=== PATIENT | male | born 1975 | race Caucasian/White ===

== ENCOUNTER → 2019-08-18 14:03 | Outpatient (CLI) | payer MEDICAID, SELFPAY ==
--- NOTE | 2019-08-18 14:20 | XR_ITS ---
PROCEDURE: XR CHEST 2V CLINICAL HISTORY: PRECORDIAL PAIN,SOB,ABN ECG COMPARISON: No exams were available for comparison FINDINGS: The cardiomediastinal silhouette and pulmonary vascularity are within normal limits. The lungs are clear without infiltrates, suspicious nodules, or pleural effusions. There is a calcified granuloma in the right upper lobe No acute bony abnormalities. IMPRESSION: No acute findings. Dictated by: Davidson Riley MD 08/18/2019 15:38 Electronically signed by Davidson Riley MD in [place] 08/18/2019 15:38
[2019-08-18 15:25] LABS: Basophils # 0.1 K/mm3 (0-0.2); Basophils % 1.1 % (0.1-2.0); Eosinophils # 0.3 K/mm3 (0.0-0.4); Eosinophils % 3.1 % (0.1-12.0); Hematocrit 42.8 % (42.0-52.0); Hemoglobin 14.4 g/dL (14.1-18.0); Lymphocytes # 2.2 K/mm3 (0.7-4.5); Mean Corpuscular HGB Conc 33.6 g/dL (31.8-35.4); Mean Corpuscular Hemoglobin 31.9 pg (27.0-31.2); Mean Corpuscular Volume 94.9 fl (80-94); Mean Platelet Volume 6.7 fl (7.4-10.4); Monocytes # 0.5 K/mm3 (0.1-1.0); Monocytes % 5.5 % (1.7-9.3); Neutrophils # 5.5 K/mm3 (1.8-7.8); Neutrophils % 64.3 % (37.0-80.0); Platelet Count 225 K/mm3 (142-424); Red Blood Count 4.51 M/mm3 (4.60-6.20); Red Cell Distribution Width 13.4 % (11.5-17.5); White Blood Count 8.5 K/mm3 (4.8-10.8)
[2019-08-18 18:25] LABS: Chloride 105 mmol/L (98-107); Potassium 4.5 mmoL/L (3.5-5.1); Sodium 139 mmol/L (136-145)
[2019-08-18 18:27] LABS: Blood Urea Nitrogen 19 mg/dl (9-20); Estimated Glomerular Filt Rate 74 ml/min (>60); GFR (African American) 89 ML/MIN (>60)
[2019-08-18 18:28] LABS: Alanine Aminotransferase 79 U/L (12-78); Albumin/Globulin Ratio 1.5 (1.1-1.8); Alkaline Phosphatase 55 U/L (38-126); Anion Gap 9.5 mEq/L (5-15); Aspartate Amino Transferase 46 U/L (17-59); Bilirubin,Total 0.9 mg/dl (0.2-1.3); Calcium 9.2 mg/dl (8.4-10.2); Carbon Dioxide 29 mmol/L (22.0-30.0); Globulin 2.6 g/dL (1.3-3.2); Glucose 107 mg/dl (74-100); Total Protein,Serum 6.6 g/dl (6.3-8.2)
== END ==
PROVIDERS: PCP Internal Medicine; Visit Provider Emergency Medicine
DX: R07.2 Precordial pain (principal); R06.02 Shortness of breath; R94.31 Abnormal electrocardiogram [ECG] [EKG]
CPT/HCPCS: 36415; 71046; 80053; 85025

== ENCOUNTER 2019-08-25 08:05 | Day surgery (SDC) | payer MEDICAID, SELFPAY ==
[2019-08-25] VITALS (13 sets, daily range): BP systolic 111–169; BP diastolic 69–119; PULSE 78–94; RESP 12–16; TEMP 36.8; O2SAT 92–96; BMI 30.4
--- NOTE | 2019-08-25 | IR_ITS ---
APPROVED REPORT Patient Location: Outpatient Contract Specialist: CHITRA Sahu RT (R) PROCEDURES Left heart catheterization Left ventriculogram Selective coronary angiogram INDICATION Abnormal Myoview Informed consent was obtained prior to the procedure. COMPLICATIONS none Estimated Blood Loss: less than 10 mls TECHNIQUE One percent lidocaine used to anesthetize the right anterior aspect of the wrist. The right radial artery was accessed via the Seldinger technique. A 6 Moldovan sheath was placed in the right radial artery. 2.5 mg of verapamil, 800 mcg of nitroglycerin, 1mg Lidocaine and 5000 U Heparin were given through the arterial sheath. The trap cathete and a 4 Moldovan JL 3.5 catheter was also used to perform left heart catheterization, left ventriculogram and selective coronary angiogram. At the end of the procedure the sheath was removed good hemostasis was achieved using Traclet band, patient was transferred to the postop holding area in stable condition. ANGIOGRAPHIC RESULTS The left main artery Normal The left anterior descending artery Normal The circumflex artery Dominant normal The right coronary artery Normal The DE ventriculogram reveals Normal 65% The left ventricular end-diastolic pressure Normal 10 mmHg IMPRESSION Normal coronary arteries Normal ejection fraction Normal left ventricular end-diastolic pressure PLAN 1. Evaluation of noncardiac chest pain Electronically signed by : Ahmet Agarwal, 08/25/2019 11:00:19
[2019-08-25 08:58] LABS: Chloride 108 mmol/L (98-107); Potassium 4.3 mmoL/L (3.5-5.1); Sodium 141 mmol/L (136-145)
[2019-08-25 09:01] LABS: Blood Urea Nitrogen 15 mg/dl (9-20); Creatinine Clearance Estimated 113 mL/min (50-200); Estimated Glomerular Filt Rate 74 ml/min (>60); GFR (African American) 89 ML/MIN (>60)
[2019-08-25 09:02] LABS: Anion Gap 9.3 mEq/L (5-15); Basophils # 0.1 K/mm3 (0-0.2); Basophils % 0.5 % (0.1-2.0); Calcium 9.2 mg/dl (8.4-10.2); Carbon Dioxide 28 mmol/L (22.0-30.0); Eosinophils # 0.3 K/mm3 (0.0-0.4); Eosinophils % 2.6 % (0.1-12.0); Glucose 104 mg/dl (74-100); Hematocrit 46.2 % (42.0-52.0); Lymphocytes # 2.4 K/mm3 (0.7-4.5); Lymphocytes % 23.8 % (10-50); Mean Corpuscular HGB Conc 34.6 g/dL (31.8-35.4); Mean Corpuscular Hemoglobin 32.5 pg (27.0-31.2); Mean Corpuscular Volume 93.7 fl (80-94); Mean Platelet Volume 7.2 fl (7.4-10.4); Monocytes # 0.7 K/mm3 (0.1-1.0); Monocytes % 6.4 % (1.7-9.3); Neutrophils # 6.9 K/mm3 (1.8-7.8); Neutrophils % 66.7 % (37.0-80.0); Platelet Count 294 K/mm3 (142-424); Red Blood Count 4.93 M/mm3 (4.60-6.20); Red Cell Distribution Width 13.9 % (11.5-17.5); White Blood Count 10.3 K/mm3 (4.8-10.8)
== END 2019-08-25 14:10 | disposition home or self-care (01) ==
LOC: CATHLAB 08:08
PROVIDERS: PCP Internal Medicine; Visit Provider Internal Medicine
DX: R94.30 Abnormal result of cardiovascular function study, unspecified (principal); R07.9 Chest pain, unspecified; Z72.0 Tobacco use; Z79.899 Other long term (current) drug therapy; I10 Essential (primary) hypertension
CPT/HCPCS: 80048; 85025; 93458; 99152; C1725; C1769; J1644; Q9967

== ENCOUNTER 2019-09-23 17:02 | Emergency (ER) | payer MEDICAID, SELFPAY ==
[2019-09-23 17:13] VITALS: BP 137/83; PULSE 108; RESP 18; O2SAT 99; BMI 30.4
--- NOTE | 2019-09-23 17:16 | XR_ITS ---
PROCEDURE: XR KNEE LT 3V CLINICAL INDICATION: injury Pain COMPARISON: No exams were available for comparison FINDINGS: No fracture or dislocation. No lytic or blastic change. There is normal mineralization. The joint spaces are well-preserved. No significant degenerative/arthritic changes. No erosive changes evident. Other findings:There is a suprapatellar effusion IMPRESSION: Knee joint effusion otherwise negative Dictated by: Davidson Riley MD 09/23/2019 18:47 Electronically signed by Davidson Riley MD in [place] 09/23/2019 18:47
[2019-09-23 17:23] VITALS: BP 137/83; PULSE 108; RESP 18; O2SAT 99; BMI 30.3
[2019-09-23 18:07] VITALS: BP 137/83; PULSE 108; RESP 18; TEMP 36.7; O2SAT 99
--- NOTE | 2019-09-23 18:15 | HMH.EDUTC ---
[facility] Clinical Impression: Strain of left knee Qualifiers: Encounter type: initial encounter Qualified Code(s): S86.912A - Strain of unspecified muscle(s) and tendon(s) at lower leg level, left leg, initial encounter Left knee pain Qualifiers: Chronicity: acute Qualified Code(s): M25.562 - Pain in left knee Fall Qualifiers: Encounter type: initial encounter Qualified Code(s): W19.XXXA - Unspecified fall, initial encounter Low back pain Qualifiers: Chronicity: acute Back pain laterality: bilateral Sciatica presence: without sciatica Qualified Code(s): M54.5 - Low back pain Disposition: Home, Self-Care Condition on Discharge: Good Instructions: How to Use Crutches, Knee Sprain, DI for Knee Sprain, How to Use a Knee Immobilizer Additional Instructions: Rest the extremity, apply ice for 15 minutes as tolerated three or four times per day, Elevate the extremity as tolerated while you are resting. Follow up with Dr. Em (orthopedics) or your orthopedist of [facility]. I put in a referral to Dr. Phillips, but you need to call her office and schedule an appointment. Follow up with your regular doctor. GO TO THE ER FOR ANY WORSENING SYMPTOMS Referrals: Abdirizak Dye [Primary Care Provider] - Annalisa Em MD [Physician] - Time of Disposition: 18:23 Medical Decision Making - Medical Records Medical records reviewed: No: I reviewed the patient's medical records. - Thony Inquiry Pt receiving controlled substance: No Vital Signs: 09/23/19 17:13 09/23/19 17:23 09/23/19 18:07 Temperature 98.0 F Pulse Rate 108 H Pulse Rate [Right] 108 H 108 H Respiratory Rate 18 18 18 Blood Pressure 137/83 Blood Pressure [Right Arm] 137/83 137/83 Blood Pressure Mean [Right Arm] 101 101 Blood Pressure Source [Right Arm] Automatic Cuff Blood Pressure Position [Right Arm] Sitting 02 Sat by Pulse Oximetry 99 99 Oxygen Delivery Method Room Air Orders (Tests/Meds): ED MEDICATIONS Discontinued Medications Generic Name Dose Route Start Last Admin Trade Name Freq PRN Reason Stop Dose Admin Methylprednisolone Sodium Succinate 125 mg 09/23/19 18:17 09/23/19 18:25 Solu-Medrol 125mg/2ml Vial IM 09/23/19 18:18 125 mg ONCE ONE Administration - Radiology Data #1 Image(s): Knee Image Reviewed: Yes I reviewed the patient's radiology image, Yes I have reviewed radiologist's interpretation Preliminary Findings: No Fracture Seen PROCEDURE: XR KNEE LT 3V CLINICAL INDICATION: injury Pain COMPARISON: No exams were available for comparison FINDINGS: No fracture or dislocation. No lytic or blastic change. There is normal mineralization. The joint spaces are well-preserved. No significant degenerative/arthritic changes. No erosive changes evident. Other findings:There is a suprapatellar effusion IMPRESSION: Knee joint effusion otherwise negative Dictated by: Davidson Riley MD 09/23/2019 18:47 Electronically signed by Davidson Riley MD in [place] 09/23/2019 18:47 [facility] [place] - General Stated complaint: [place] 0714 injured L Knee Time Seen by Provider: 09/23/19 17:15 Mode of Arrival: Ambulatory Source of Information: Patient Limitations: No Limitations Description of Symptoms (Recalled from Triage Doc. by RN): PATIENT C/O LEFT KNEE PAIN AFTER MISSING A STEP AND FALLING ON THURSDAY HE Symptoms (Recalled from RN notes): No Resp Symptoms (Recalled from RN notes): No Skin Symptoms (Recalled from RN notes): No MS Symptoms (Recalled from RN notes): Yes Functional Status (Recalled from RN notes): WNL - History of Present Illness Provider Complaint: He states that he was walking down some stairs at his house when he missed a couple of the steps and fell down and twisted his left knee. This happened 3 days ago. Since then he has not been able to bear weight on the knee without having severe pain. He has also had some swelling of the affected knee. - Related Data Home M
== END 2019-09-23 18:40 | disposition home or self-care (01) ==
PROVIDERS: Emergency Provider Nurse Practitioner Family; PCP Internal Medicine
DX: S86.912A Strain of unspecified muscle(s) and tendon(s) at lower leg level, left leg, initial encounter (principal); W10.9XXA Fall (on) (from) unspecified stairs and steps, initial encounter; Y92.019 Unspecified place in single-family (private) house as the place of occurrence of the external cause; I10 Essential (primary) hypertension; J45.909 Unspecified asthma, uncomplicated; K21.9 Gastro-esophageal reflux disease without esophagitis; F17.210 Nicotine dependence, cigarettes, uncomplicated
CPT/HCPCS: 29505; 73562; 96372; 99203

== ENCOUNTER 2021-12-12 04:28 | Emergency (ER) | payer BC, SELFPAY ==
[2021-12-12 04:48] VITALS: BMI 27.0
[2021-12-12 04:52] VITALS: BP 131/86; PULSE 107; RESP 16; TEMP 36.4; O2SAT 97; BMI 27.0
[2021-12-12 04:52] LABS: Adenovirus,PCR Not Detected (NotDetected); Bordetella Pertussis Not Detected (NotDetected); Chlamydophila Pneumoniae, PCR Not Detected (NotDetected); Coronavirus 229E Not Detected (NotDetected); Coronavirus NL63 Not Detected (NotDetected); Coronavirus OC43 Not Detected (NotDetected); Coronovirus HKU1,PCR Not Detected (NotDetected); Human Metapneumovirus Not Detected (NotDetected); Influenza A, PCR Not Detected (NotDetected); Influenza AH1, 2009 Not Detected (NotDetected); Influenza AH1, PCR Not Detected (NotDetected); Influenza AH3,PCR Not Detected (NotDetected); Influenza B, PCR Not Detected (NotDetected); Mycoplasma Pneumoniae, PCR Not Detected (NotDetected); Parainfluenza 1, PCR Not Detected (NotDetected); Parainfluenza 2, PCR Not Detected (NotDetected); Parainfluenza 3, PCR Not Detected (NotDetected); Parainfluenza 4, PCR Not Detected (NotDetected); Respiratory Syncytial Virus Not Detected (NotDetected); Rhinovirus/Enterovirus Not Detected (NotDetected)
--- NOTE | 2021-12-12 05:05 | HMH.EDURI ---
Discharge Plan Disposition Patient Disposition: Home, Self-Care Chief Complaint: Upper Respiratory Infection Prescriptions Prescriptions: No Action metoprolol succinate 25 MG tablet extended release 24 hr 25 mg PO DAILY Referrals Follow up/Referrals: Abdirizak Dye MD [Primary Care Provider] - See instructions Clinical Impressions Clinical Impression: Upper respiratory infection, Bronchitis Instructions Patient Instructions: DI for Acute Bronchitis, DI for COVID-19 (Suspected or Confirmed ) Discharge ED Provider: Janes Lowry URI/Sore Throat HPI General Chief Complaint: Upper Respiratory Infection Stated Complaint: HOLGUIN,poor appitite,fever,Covid test Time Seen by Provider: 12/12/21 05:05 Mode of Arrival: Ambulatory Source of Information: Patient, Spouse and Medical Record Limitations: No Limitations Description of Symptoms (Recalled from ER Triage Doc. by RN): pt c/o a cough and general not well feeling reports to have had a fever thursday with headache. History of Present Illness HPI Narrative: cough and holguin and not feeling well over the last few days - no def exposure to covid-19 Complaint: cough Onset (ago): day(s) Duration: intermittent Severity: moderate Able to tolerate fluids by mouth: Yes Related Data Home Medications Medication Instructions Recorded Confirmed metoprolol succinate 25 mg 25 mg PO DAILY blood pressure 08/25/19 09/23/19 tablet,extended release 24 hr Allergies Allergy/AdvReac Type Severity Reaction Status Date / Time cefaclor [From [facility]] Allergy Verified 08/29/19 14:21 ibuprofen Allergy Verified 08/29/19 14:21 PFSH PFSH Social History Smoking Status: Heavy tobacco smoker tobacco type: cigarettes packs per day: 2 alcohol intake: never substance use type: denies use current occupational status: other Travel in the last 8 weeks: None household members: spouse housing: house ROS Obtained: Yes All systems reviewed & no additional complaints except as documented Respiratory Respiratory: Reports as per HPI and Reports cough Physical Exam General General appearance: alert Head Head exam: normocephalic Eye Eye exam: Present PERRL and EOMI ENT ENT exam: Present mucous membranes moist Expanded ENT Exam Throat exam: Present tonsillar erythema; Absent R peritonsillar mass or muffled voice Neck Neck exam: Present trachea midline Respiratory Respiratory exam: Present wheezes Cardiovascular Cardiovascular exam: Present regular rate Abdominal Exam Abdominal exam: Present soft Extremities Exam Extremities exam: Absent calf tenderness Neurological Exam Neurological exam: Present alert and CN II-XII intact Psychiatric Psychiatric exam: Present normal affect Skin Skin exam: Absent rash Medical Decision Making Medical Records Medical records reviewed: Yes I reviewed the patient's medical records. Thony Inquiry Pt receiving controlled substance: No Vital Signs: 12/12/21 04:52 Temperature 97.6 F Temperature Source Oral Pulse Rate [Left] 107 H Respiratory Rate 16 Blood Pressure [Right Arm] 131/86 Blood Pressure Mean [Right Arm] 101 02 Sat by Pulse Oximetry 97 Oxygen Delivery Method Room Air Lab Data Lab results reviewed: Yes I reviewed the patient's lab results. Orders (Tests/Meds): ED MEDICATIONS Discontinued Medications Generic Name Dose Route Start Last Admin Trade Name Freq PRN Reason Stop Dose Admin Albuterol/Ipratropium 2 puff 12/12/21 05:05 Combivent 20mcg/100mcg Respimat Inhaler IH 12/12/21 05:06 ONCE ONE Levofloxacin 500 mg 12/12/21 05:05 Levofloxacin 500mg Tab PO 12/12/21 05:06 ONCE ONE Prednisone 40 mg 12/12/21 05:05 Prednisone 20mg Tab PO 12/12/21 05:06 ONCE ONE ORDERS Category Date Time Status Full Resp Panel w/COVID ([facility]) Routine Lab 12/12/21 04:49 Received Medical Decision Narrative: will do resp panel with covid-19 - pt will call pcp for follow
[2021-12-12 05:51] VITALS: BP 128/80; PULSE 100; RESP 16; TEMP 36.6; O2SAT 98
[2021-12-12 06:08] LABS: Coronavirus 19, PCR Detected (NotDetected)
== END 2021-12-12 05:53 | disposition home or self-care (01) ==
PROVIDERS: Emergency Provider Emergency Medicine; PCP Internal Medicine
DX: U07.1 COVID-19 (principal); J40 Bronchitis, not specified as acute or chronic
CPT/HCPCS: 87581; 87632; 87798; 99283; C9803; U0003; U0005

== ENCOUNTER 2022-02-18 20:04 | Emergency (ER) | payer BC, SELFPAY ==
[2022-02-18 20:07] VITALS: BP 127/76; PULSE 112; RESP 16; TEMP 38.1; O2SAT 95; BMI 25.8
--- NOTE | 2022-02-18 20:42 | XR_ITS ---
PROCEDURE INFORMATION: Exam: XR Chest Exam date and time: 02/18/2022 9:08 PM Age: 46 years old Clinical indication: Patient HX: Cough, congestion, smoker TECHNIQUE: Imaging protocol: Radiologic exam of the chest. Views: 2 views. COMPARISON: DX XR CHEST 2V 08/18/2019 2:25 PM FINDINGS: Lungs: Subtle interstitial haziness could reflect interstitial pneumonia. No consolidation. Pleural spaces: Unremarkable. No pleural effusion. No pneumothorax. Heart/Mediastinum: Unremarkable. No cardiomegaly. Bones/joints: Unremarkable. IMPRESSION: Subtle interstitial haziness could reflect interstitial pneumonia.
[2022-02-18 20:48] LABS: Coronavirus 19, PCR Not Detected (NotDetected); Influenza B, PCR Not Detected (NotDetected)
[2022-02-18 21:49] LABS: Influenza A, PCR Detected (NotDetected)
[2022-02-18 21:58] VITALS: BP 120/72; PULSE 98; RESP 18; TEMP 37.2; O2SAT 98
--- NOTE | 2022-02-18 21:59 | HMH.EDURI ---
Discharge Plan Disposition Patient Disposition: Home, Self-Care Prescriptions Prescriptions: New benzonatate 100 mg Capsule 100 mg PO Q8H Qty: 20 0RF prednisone [prednisone] 20 mg tablet 20 mg PO BID Qty: 10 0RF oseltamivir [Tamiflu] 75 mg capsule 75 mg PO BID 5 Days Qty: 10 0RF No Action metoprolol succinate 25 MG tablet extended release 24 hr 25 mg PO DAILY Referrals Follow up/Referrals: Abdirizak Dye MD [Primary Care Provider] - See instructions Clinical Impressions Clinical Impression: Influenza Stand Alone Forms Stand Alone Forms: Work/School Release Instructions Patient Instructions: DI for Influenza -- Adult Discharge ED Provider: Janes Lowry URI/Sore Throat HPI General Chief Complaint: Upper Respiratory Infection Stated Complaint: cough, body aches, SOA, holguin, congestion Time Seen by Provider: 02/18/22 21:59 Mode of Arrival: Ambulatory Source of Information: Patient and Medical Record Limitations: No Limitations Description of Symptoms (Recalled from ER Triage Doc. by RN): pt c/o fever, cough, Holguin, congestion since thursday History of Present Illness HPI Narrative: uri sx and cough and congestion with holguin Complaint: cough and nasal congestion Onset (ago): day(s) Duration: intermittent Severity: moderate Able to tolerate fluids by mouth: Yes Treatments prior to arrival: acetaminophen Related Data Home Medications Medication Instructions Recorded Confirmed metoprolol succinate 25 mg 25 mg PO DAILY blood pressure 08/25/19 09/23/19 tablet,extended release 24 hr Previous Rx's Medication Instructions Recorded benzonatate 100 mg capsule 100 mg PO Q8H #20 caps 02/18/22 oseltamivir 75 mg capsule (Tamiflu) 75 mg PO BID 5 days #10 caps 02/18/22 prednisone 20 mg tablet 20 mg PO BID #10 tabs 02/18/22 Allergies Allergy/AdvReac Type Severity Reaction Status Date / Time cefaclor [From [facility]] Allergy Verified 08/29/19 14:21 ibuprofen Allergy Verified 08/29/19 14:21 [facility] Disclaimer: The information contained in this section may have been updated after the patient was seen, as this information can be updated by other users. Social History Smoking Status: Never smoker alcohol intake: never substance use type: denies use current occupational status: other Travel in the last 8 weeks: None household members: spouse housing: house ROS Obtained: Yes All systems reviewed & no additional complaints except as documented Physical Exam General General appearance: alert Head Head exam: normocephalic Eye Eye exam: Present PERRL and EOMI ENT ENT exam: Present normal oropharynx and mucous membranes moist Neck Neck exam: Present trachea midline Respiratory Respiratory exam: Present normal lung sounds bilaterally; Absent respiratory distress Cardiovascular Cardiovascular exam: Present regular rate; Absent systolic murmur Abdominal Exam Abdominal exam: Present soft Extremities Exam Extremities exam: Absent tenderness Neurological Exam Neurological exam: Present alert, oriented X3 and CN II-XII intact; Absent motor sensory deficit Psychiatric Psychiatric exam: Present normal affect Skin Skin exam: Absent rash Medical Decision Making Medical Records Medical records reviewed: Yes I reviewed the patient's medical records. Thony Inquiry Pt receiving controlled substance: No Vital Signs: 02/18/22 20:07 Temperature 100.6 F H Temperature Source Oral Pulse Rate [Right] 112 H Respiratory Rate 16 Blood Pressure [Right Arm] 127/76 Blood Pressure Mean [Right Arm] 93 02 Sat by Pulse Oximetry 95 Lab Data Lab results reviewed: Yes I reviewed the patient's lab results. Lab Results 02/18/22 20:39: SARS-CoV-2 (PCR) Not detected, Influenza A Untype (PCR) Detected A, Influenza Type B (PCR) Not detected Orders (Tests/Meds): ED MEDICATIONS Discontinued Medications Generic Name Dose Route Start Last Admin Trade Name
== END 2022-02-18 22:13 | disposition home or self-care (01) ==
PROVIDERS: Emergency Provider Emergency Medicine; PCP Internal Medicine
DX: J10.1 Influenza due to other identified influenza virus with other respiratory manifestations (principal)
CPT/HCPCS: 71046; 99283; C9803; U0003; U0005

== ENCOUNTER → 2022-02-25 10:16 | Outpatient (CLI) | payer BC, SELFPAY ==
--- NOTE | 2022-02-25 10:29 | XR_ITS ---
FINAL REPORT CLINICAL HISTORY: COUGH COMPARISON: 02/18/2022 FINDINGS: TWO-VIEW CHEST The heart size is normal. The mediastinum is normal. There are worsening pulmonary opacities, may represent pneumonia or edema. There is no pneumothorax. IMPRESSION: Worsening pulmonary opacities. Reviewed, Interpreted and Dictated by Rashaad Matt III, MD Transcribed by Kelle Ayala Authenticated and . [facility]
[2022-02-25 11:19] LABS: Chloride 100 mmol/L (98-107); Potassium 3.6 mmoL/L (3.5-5.1); Sodium 136 mmol/L (136-145)
[2022-02-25 11:22] LABS: Anion Gap 11.6 mEq/L (5-15); Blood Urea Nitrogen 18 mg/dl (9-20); Calcium 9.1 mg/dl (8.4-10.2); Carbon Dioxide 28 mmol/L (22.0-30.0); Estimated Glomerular Filt Rate 92 ml/min (>60); GFR (African American) 111 ML/MIN (>60); Glucose 155 mg/dl (74-100)
[2022-02-25 11:25] LABS: Basophils # 0.1 K/mm3 (0-0.2); Basophils % 0.5 % (0.1-2.0); Eosinophils # 0.1 K/mm3 (0.0-0.4); Eosinophils % 0.3 % (0.1-12.0); Hematocrit 43.4 % (42.0-52.0); Hemoglobin 14.6 g/dL (14.1-18.0); Lymphocytes # 1.2 K/mm3 (0.7-4.5); Lymphocytes % 7.7 % (10-50); Mean Corpuscular HGB Conc 33.7 g/dL (31.8-35.4); Mean Corpuscular Hemoglobin 30.6 pg (27.0-31.2); Mean Corpuscular Volume 90.8 fl (80-94); Mean Platelet Volume 8.1 fl (7.4-10.4); Monocytes # 0.7 K/mm3 (0.1-1.0); Monocytes % 4.8 % (1.7-9.3); Neutrophils % 86.7 % (37.0-80.0); Platelet Count 473 K/mm3 (142-424); Red Blood Count 4.77 M/mm3 (4.60-6.20); Red Cell Distribution Width 12.9 % (11.5-17.5)
[2022-02-25 11:26] LABS: MANUAL DIFFERENTIAL MANUAL DIFFERENTIAL (MANUAL DIFF)
[2022-02-25 11:43] LABS: Lymphocytes % 15 % (10-50); Monocytes % 8 % (2-9); Neutrophils % 77 % (42-76); Total Cells Counted 100
[2022-02-25 11:44] LABS: Platelet Estimate Slight Increase; RBC Morphology Normal
== END ==
LOC: LAB 10:16
PROVIDERS: PCP Internal Medicine; Visit Provider Internal Medicine
DX: J10.1 Influenza due to other identified influenza virus with other respiratory manifestations (principal); J45.901 Unspecified asthma with (acute) exacerbation; E86.0 Dehydration
CPT/HCPCS: 36415; 71046; 80048; 85007; 85025; 87040

== ENCOUNTER 2022-02-25 12:13 | Inpatient (IN) | payer BC, SELFPAY ==
--- NOTE | 2022-02-25 12:24 | PC.NURSE ---
Pt arrived to the floor at this time
[2022-02-25 12:44] VITALS: BP 129/92; PULSE 132; RESP 24; TEMP 36.5; O2SAT 86; BMI 26.2
[2022-02-25 13:10] LABS: Coronavirus 19, PCR Not Detected (NotDetected); Influenza B, PCR Not Detected (NotDetected)
[2022-02-25 13:43] LABS: Influenza A, PCR Detected (NotDetected)
--- NOTE | 2022-02-25 14:02 | ECG_ITS ---
APPROVED REPORT Exam: Resting ECG HR:116 bpm ECG Measurements Heart Rate 116 AXES DE 120 P 37 QRSd 86 QRS 87 QT 298 T 28 QTc 367 Conclusion SINUS TACHYCARDIA ABNORMAL RHYTHM ECG UNCONFIRMED REPORT Electronically signed by : Magdaleno Barnes MD 02/25/2022 22:14:06
--- NOTE | 2022-02-25 14:09 | EXP.HP ---
History of Present Illness *Admission Date: 02/25/22 *Reason for visit:: Pneumonia, hypoxia *History of present illness: Patient is a 46-year-old male with past medical history of hypertension and asthma who is a direct admission from Dr. Dye [facility] for pneumonia with hypoxia. Patient reports a cough and shortness of breath for the past week. On 02/18 he tested positive for influenza A and started Tamiflu. He had nausea and vomiting and therefore did not continue Tamiflu. Shortness of breath and cough continue to worsen so he went to his PCPs office this morning where a pulse ox showed 86% on room air and a heart rate of 120. Patient had crackles on exam and a chest x-ray showed interstitial pneumonia with a leukocytosis of 15. Dr. Dye called and consulted me for transfer. [facility] Disclaimer: The information contained in this section may have been updated after the patient was seen, as this information can be updated by other users. Medical History (Updated 02/25/22 @ 14:21 by Xander Briones MD) Asthma Family History (Updated 02/25/22 @ 13:18 by Rach Cho RN) Other Family history of cancer Family history of myocardial infarction Social History (Updated 02/25/22 @ 13:20 by Rach Cho RN) Smoking Status: Never smoker alcohol intake: never substance use type: denies use current occupational status: other Travel in the last 8 weeks: None household members: spouse housing: house Review of Systems Constitutional Constitutional: Denies anorexia, Denies body ache(s), Reports chills, Reports fatigue, Reports fever(s), Denies headache(s), Denies poor appetite, Reports lethargy and Denies weakness Eyes Eyes: Denies blurry vision, Denies change in vision and Denies loss of vision ENT Ears, Nose, Mouth, and Throat: Denies abnormal hearing, Denies bleeding gums, Denies disequilibrium, Denies dry mouth, Denies facial pain, Denies headache(s), Denies hoarseness and Reports sore throat *Cardiovascular Cardiovascular: Denies chest pain at rest, Denies chest pain with activity, Reports dyspnea, Reports dyspnea on exertion, Denies leg ulcers and Reports palpitations *Respiratory Respiratory: Reports cough, Reports dyspnea, Reports dyspnea on exertion and Reports wheezing *Gastrointestinal Gastrointestinal: Denies abdominal pain and Denies constipation *Genitourinary Genitourinary: Denies difficulty urinating *Musculoskeletal Musculoskeletal: Denies abnormal gait, Denies back pain and Denies numbness *Neurologic Neurologic: Denies abnormal gait, Denies abnormal hearing, Denies abnormal movements, Denies abnormal speech, Denies confusion, Denies convulsions, Denies disequilibrium, Denies headache(s), Denies loss of vision, Denies memory loss, Denies numbness and Denies weakness Psychiatric Psychiatric: Denies anxiety, Denies confusion, Denies depression, Denies memory loss and Denies mood swings Endocrine Endocrine: Reports fatigue and Reports palpitations Allergic/Immunologic Allergic/Immunologic: Reports wheezing Meds Home Medications and Allergies Home Medications Medication Instructions Recorded Confirmed Type metoprolol succinate 25 mg 25 mg PO DAILY blood pressure 08/25/19 09/23/19 History tablet,extended release 24 hr benzonatate 100 mg capsule 100 mg PO Q8H #20 caps 02/18/22 Rx oseltamivir 75 mg capsule (Tamiflu) 75 mg PO BID 5 days #10 caps 02/18/22 Rx prednisone 20 mg tablet 20 mg PO BID #10 tabs 02/18/22 Rx New Prescriptions to Start Prescriptions: Allergies Allergy/AdvReac Type Severity Reaction Status Date / Time [facility] Allergy Verified 08/29/19 14:21 ibuprofen Allergy Verified 08/29/19 14:21 Exam Data for Last 24 hours Vital signs and Labs for Last 24 Hours: Temp Pulse Resp BP Pulse Ox 97.7 F 132 H 24 129/92 H 86 L 02/25/22 12:44 02/25/22 12:44 02/25/22 12:44 02/25/22 12:44 02/25/22 12:44 Laboratory Results - last 24 hr
[2022-02-25 14:21] LABS: Chloride 101 mmol/L (98-107); Sodium 135 mmol/L (136-145)
[2022-02-25 14:22] LABS: Potassium 3.4 mmoL/L (3.5-5.1)
[2022-02-25 14:24] LABS: Alanine Aminotransferase 74 U/L (12-78); Albumin Level 3.6 g/dl (3.5-5.0); Albumin/Globulin Ratio 1.1 (1.1-1.8); Alkaline Phosphatase 142 U/L (38-126); Anion Gap 10.4 mEq/L (5-15); Aspartate Amino Transferase 48 U/L (17-59); Bilirubin,Total 1.4 mg/dl (0.2-1.3); Blood Urea Nitrogen 17 mg/dl (9-20); Calcium 9.1 mg/dl (8.4-10.2); Carbon Dioxide 27 mmol/L (22.0-30.0); Creatinine Clearance Estimated 116 mL/min (50-200); Estimated Glomerular Filt Rate 92 ml/min (>60); GFR (African American) 111 ML/MIN (>60); Globulin 3.4 g/dL (1.3-3.2); Glucose 126 mg/dl (74-100)
[2022-02-25 14:25] LABS: Basophils # 0.1 K/mm3 (0-0.2); Basophils % 0.5 % (0.1-2.0); Eosinophils % 0.1 % (0.1-12.0); Hematocrit 42.5 % (42.0-52.0); Hemoglobin 14.3 g/dL (14.1-18.0); Lymphocytes # 1.3 K/mm3 (0.7-4.5); Lymphocytes % 8.2 % (10-50); Magnesium 2.4 mg/dl (1.6-2.3); Mean Corpuscular HGB Conc 33.6 g/dL (31.8-35.4); Mean Corpuscular Volume 92.4 fl (80-94); Mean Platelet Volume 7.8 fl (7.4-10.4); Monocytes # 0.9 K/mm3 (0.1-1.0); Monocytes % 6.1 % (1.7-9.3); Neutrophils % 85.2 % (37.0-80.0); Platelet Count 453 K/mm3 (142-424); Red Cell Distribution Width 13.3 % (11.5-17.5); White Blood Count 15.3 K/mm3 (4.8-10.8)
[2022-02-25 14:43] LABS: Lactic Acid 1.3 mmol/L (0.7-2.1)
--- NOTE | 2022-02-25 15:16 | HMH.PHAINT1 ---
Pharmacy Intervention Comments: home medication list verified with patient
[2022-02-25 16:00] VITALS: BP 129/79; PULSE 116; RESP 20; TEMP 37.7; O2SAT 91
[2022-02-25 17:16] LABS: Microscopic, Urine URINE MICROSCOPIC (MICROSCOPIC)
[2022-02-25 17:19] LABS: Appearance,Urine CLEAR (Clear); Blood, Urine TRACE-I (Negative); Color,Urine ORANGE (Yellow); Glucose,Urine (UA) TRACE (Negative); Ketones,Urine TRACE (Negative); Leukocyte Esterase,Urine Negative (Negative); Nitrate,Urine Negative (Negative); PH,Urine 6.5 (5.0-8.5); Protein,Urine 2+ (Negative); Specific Gravity, Urine 1.025 (1.005-1.030); Urobilinogen,Urine >=8.0 EU/dl (0.2)
[2022-02-25 17:28] LABS: Amphetamine/Metha Screen,Urine Negative ng/ml (<1000); Barbiturates Screen,Urine Negative ng/ml (<200)
[2022-02-25 17:29] LABS: Benzodiazepines Screen,Urine Negative ng/ml (<200)
[2022-02-25 17:30] LABS: Cannabinoid Screen,Urine Negative ng/ml (<50); Cocaine Screen,Urine Negative ng/ml (<300)
[2022-02-25 17:31] LABS: Methadone Screen,Urine Negative ng/ml (<300)
[2022-02-25 17:32] LABS: Opiate Screen,Urine Positive ng/ml (<300); Phencyclidine Screen,Urine Negative ng/ml (<25)
[2022-02-25 17:41] LABS: Bacteria,Urine Trace /lpf; Bilirubin,Urine 1+ (Negative); RBC,Urine Occasional #/hpf (0-3); WBC,Urine Occasional #/hpf (0-3)
[2022-02-25 19:40] VITALS: BP 120/70; PULSE 94; RESP 18; TEMP 36.5; O2SAT 92
[2022-02-25 20:00] VITALS: PULSE 100; PULSE 94
[2022-02-25 23:52] VITALS: BP 127/80; PULSE 95; RESP 18; TEMP 36.8; O2SAT 95
[2022-02-26] VITALS (10 sets, daily range): BP systolic 119–137; BP diastolic 68–86; PULSE 84–99; RESP 16–20; TEMP 36.8–37.3; O2SAT 93–99; BMI 26.4
--- NOTE | 2022-02-26 05:13 | PC.NURSE ---
pt has rested intermittently this shift, no complaints of SOA or pain, remains on 1L NC, crackes noted to lungs on auscultation, o2 SATS 92-95%
[2022-02-26 06:59] LABS: Basophils # 0.1 K/mm3 (0-0.2); Basophils % 0.6 % (0.1-2.0); Eosinophils % 0.3 % (0.1-12.0); Hematocrit 40.7 % (42.0-52.0); Hemoglobin 13.3 g/dL (14.1-18.0); Lymphocytes # 1.7 K/mm3 (0.7-4.5); Mean Corpuscular HGB Conc 32.7 g/dL (31.8-35.4); Mean Corpuscular Hemoglobin 30.7 pg (27.0-31.2); Mean Platelet Volume 7.2 fl (7.4-10.4); Monocytes # 0.9 K/mm3 (0.1-1.0); Monocytes % 5.2 % (1.7-9.3); Neutrophils # 13.8 K/mm3 (1.8-7.8); Platelet Count 437 K/mm3 (142-424); Red Blood Count 4.33 M/mm3 (4.60-6.20); Red Cell Distribution Width 13.4 % (11.5-17.5); White Blood Count 16.4 K/mm3 (4.8-10.8)
[2022-02-26 07:02] LABS: MANUAL DIFFERENTIAL MANUAL DIFFERENTIAL (MANUAL DIFF)
[2022-02-26 07:03] LABS: Chloride 104 mmol/L (98-107)
[2022-02-26 07:04] LABS: Potassium 3.5 mmoL/L (3.5-5.1); Sodium 135 mmol/L (136-145)
[2022-02-26 07:06] LABS: Alanine Aminotransferase 106 U/L (12-78); Alkaline Phosphatase 137 U/L (38-126); Aspartate Amino Transferase 80 U/L (17-59); Bilirubin,Total 0.8 mg/dl (0.2-1.3); Blood Urea Nitrogen 12 mg/dl (9-20); Creatinine Clearance Estimated 150 mL/min (50-200); Estimated Glomerular Filt Rate 123 ml/min (>60); GFR (African American) 148 ML/MIN (>60)
[2022-02-26 07:07] LABS: Albumin Level 3.1 g/dl (3.5-5.0); Anion Gap 8.5 mEq/L (5-15); Calcium 8.3 mg/dl (8.4-10.2); Carbon Dioxide 26 mmol/L (22.0-30.0); Globulin 3.1 g/dL (1.3-3.2); Glucose 110 mg/dl (74-100); Total Protein,Serum 6.2 g/dl (6.3-8.2)
[2022-02-26 07:40] LABS: Lymphocytes % 14 % (10-50); Monocytes % 3 % (2-9); Neutrophils % 83 % (42-76); Platelet Estimate Normal; RBC Morphology Normal; Total Cells Counted 100
--- NOTE | 2022-02-26 10:33 | PC.NURSE ---
courtesy tech round: pt sleeping on left side with call light within reach.
--- NOTE | 2022-02-26 11:52 | PC.NURSE ---
INSTRUCTED PATIENT WE NEEDED A SPUTUM SAMPLE. EXPLAINED REASONING FOR SPUTUM SAMPLE AND PATIENT VERBALIZED UNDERSTANDING. SAMPLE CUP PROVIDED AT BEDSIDE.
--- NOTE | 2022-02-26 15:54 | EXP.PN ---
Subjective *Date: 02/26/22 *Time: 15:54 Interval history: Patient still feels rather sick today, he is coughing quite a bit and feels short of breath. Exam Data for Last 24 hours Vital signs and Labs for Last 24 Hours: Temp Pulse Resp BP Pulse Ox 98.4 F 94 H 18 123/82 93 L 02/26/22 12:00 02/26/22 12:00 02/26/22 12:00 02/26/22 12:00 02/26/22 13:43 Laboratory Results - last 24 hr 02/25/22 16:42: Urine Color Gillespie, Urine Appearance Clear, Urine pH 6.5, Ur Specific Logan 1.025, Urine Protein 2+, Urine Glucose (UA) Trace, Urine Ketones Trace, Urine Blood Trace-i, Urine Nitrate Negative, Urine Bilirubin 1+ A, Urine Urobilinogen >=8.0, Ur Leukocyte Esterase Negative, Urine RBC Occasional, Urine WBC Occasional, Ur Squamous Epith Cells None, Urine Bacteria Trace 02/25/22 16:42: Urine Opiates Screen Positive H, Urine Methadone Screen Negative, Ur Barbituates Screen Negative, Ur Phencyclidine Scrn Negative, Ur Amphetamines Screen Negative, U Benzodiazepines Scrn Negative, Urine Cocaine Screen Negative, U Marijuana (THC) Screen Negative 02/26/22 06:32: WBC 16.4 H, RBC 4.33 L, Hgb 13.3 L, Hct 40.7 L, MCV 94.0, MCH 30.7, MCHC 32.7, RDW 13.4, Plt Count 437 H, MPV 7.2 L, Neut % (Auto) 84.0 H, Lymph % (Auto) 10.0, Pickett % (Auto) 5.2, Eos % (Auto) 0.3, Baso % (Auto) 0.6, Neut # (Auto) 13.8 H, Lymph # (Auto) 1.7, Pickett # (Auto) 0.9, Eos # (Auto) 0.0, Baso # (Auto) 0.1, Total Counted 100, Neutrophils % (Manual) 83 H, Lymphocytes % (Manual) 14, Monocytes % (Manual) 3, Platelet Estimate Normal, RBC Morphology Normal 02/26/22 06:32: Sodium 135 L, Potassium 3.5, Chloride 104, Carbon Dioxide 26, Anion Gap 8.5, BUN 12 D, Creatinine 0.70 D, Estimated Creat Clear 150, Estimated GFR 123, Est GFR ( Amer) 148 D, Glucose 110 H, Calcium 8.3 L, Total Bilirubin 0.8, AST 80 H D, ALT 106 H D, Alkaline Phosphatase 137 H, Total Protein 6.2 L, Albumin 3.1 L D, Globulin 3.1, Albumin/Globulin Ratio 1.0 L I & O for Last 24 hours: Intake & Output 02/23/22 02/24/22 02/25/22 02/26/22 23:59 23:59 23:59 23:59 Intake Total 993 / 993 2153 / 2153 Output Total 100 / 860 1000 / 1000 Balance 893 / 133 1153 / 1153 Weight 78.16 kg 78.982 kg Constitutional Constitutional: mild distress, average body habitus and cooperative *Routine HEENT Exam Head: Present normocephalic and atraumatic Eye: Present EOMI and PERRL ENT: Present mucous membranes moist and oropharynx clear *Routine Neck Exam Neck: Present supple and full ROM *Routine Respiratory Exam Respiratory: Present prolonged expiratory phase, wheezes, diminished air movement, normal respiratory effort and able to speak in complete sentences; Absent accessory muscle use, CTA bilaterally, respiratory distress, rhonchi, stridor or crackles *Routine Cardiovascular Exam Cardiovascular: Present RRR, Normal S1, Normal S2 and tachycardia; Absent murmur *Routine Abdominal Exam Abdominal: Present soft and normoactive bowel sounds; Absent tenderness, distended, rebound or guarding *Routine Extremities Exam Extremities: Present full ROM, pulses intact and normal capillary refill; Absent edema or tenderness *Routine Neurological Exam Neurological: Present alert, oriented X3, CN II-XII intact, moving all extremities, normal tone and normal speech; Absent sensory deficit or motor deficit Routine Psychiatric Exam Psychiatric: Present normal affect, normal thought process, cooperative, good insight and good judgment Assessment and Plan *Assessment and plan (1) Community acquired pneumonia: Status: Acute Category: Medical Code(s): J18.9 - Pneumonia, unspecified organism (2) Acute hypoxemic respiratory failure: Status: Acute Category: Medical Code(s): J96.01 - Acute respiratory failure with hypoxia (3) Influenza A: Status: Acute Category: Medical Code(s): J10.1 - Influenza due to other identified influenza virus with other respiratory manifestations (4) Asthma:
[2022-02-27] VITALS: BP 119/86; PULSE 70; PULSE 76; RESP 20; TEMP 37; O2SAT 94
[2022-02-27 04:00] VITALS: BP 114/77; PULSE 69; PULSE 86; RESP 20; TEMP 36.7; O2SAT 96; BMI 26.4
--- NOTE | 2022-02-27 06:06 | PC.NURSE ---
Pt. is aox 4 and is up adlib. He has been 93% on RA and has his 02 ready at 2L if needed. He has flu A and sepsis due to PNA per MD. note.
[2022-02-27 06:58] LABS: Basophils # 0.1 K/mm3 (0-0.2); Basophils % 0.5 % (0.1-2.0); Eosinophils % 0.2 % (0.1-12.0); Hematocrit 36.8 % (42.0-52.0); Hemoglobin 11.8 g/dL (14.1-18.0); Lymphocytes # 1.6 K/mm3 (0.7-4.5); Lymphocytes % 11.4 % (10-50); Mean Corpuscular HGB Conc 32.1 g/dL (31.8-35.4); Mean Corpuscular Hemoglobin 30.6 pg (27.0-31.2); Mean Corpuscular Volume 95.1 fl (80-94); Mean Platelet Volume 7.2 fl (7.4-10.4); Monocytes # 0.6 K/mm3 (0.1-1.0); Monocytes % 4.7 % (1.7-9.3); Neutrophils # 11.4 K/mm3 (1.8-7.8); Neutrophils % 83.2 % (37.0-80.0); Platelet Count 402 K/mm3 (142-424); Red Blood Count 3.87 M/mm3 (4.60-6.20); Red Cell Distribution Width 13.3 % (11.5-17.5); White Blood Count 13.7 K/mm3 (4.8-10.8)
[2022-02-27 07:08] LABS: Chloride 107 mmol/L (98-107); Potassium 4.1 mmoL/L (3.5-5.1); Sodium 137 mmol/L (136-145)
[2022-02-27 07:11] LABS: Alanine Aminotransferase 159 U/L (12-78); Albumin Level 2.8 g/dl (3.5-5.0); Albumin/Globulin Ratio 0.9 (1.1-1.8); Alkaline Phosphatase 122 U/L (38-126); Anion Gap 7.1 mEq/L (5-15); Aspartate Amino Transferase 101 U/L (17-59); Bilirubin,Total 0.4 mg/dl (0.2-1.3); Blood Urea Nitrogen 12 mg/dl (9-20); Calcium 8.3 mg/dl (8.4-10.2); Carbon Dioxide 27 mmol/L (22.0-30.0); Creatinine Clearance Estimated 176 mL/min (50-200); Estimated Glomerular Filt Rate 146 ml/min (>60); GFR (African American) 177 ML/MIN (>60); Glucose 111 mg/dl (74-100); Total Protein,Serum 5.8 g/dl (6.3-8.2)
[2022-02-27 08:00] VITALS: BP 130/85; PULSE 73; RESP 15; TEMP 36.6; O2SAT 95
[2022-02-27 12:00] VITALS: BP 139/81; PULSE 82; RESP 14; TEMP 36.8; O2SAT 92
--- NOTE | 2022-02-27 13:40 | EXP.DC.SUM ---
General Admission date:: 02/25/22 Discharge date: 02/27/22 HPI HPI HPI: Patient is a 46-year-old male with past medical history of hypertension and asthma who is a direct admission from Dr. [facility] for pneumonia with hypoxia. Patient reports a cough and shortness of breath for the past week. On 02/18 he tested positive for influenza A and started Tamiflu. He had nausea and vomiting and therefore did not continue Tamiflu. Shortness of breath and cough continue to worsen so he went to his PCPs office this morning where a pulse ox showed 86% on room air and a heart rate of 120. Patient had crackles on exam and a chest x-ray showed interstitial pneumonia with a leukocytosis of 15. Dr. Dye called and consulted me for transfer. Hospital Course Hospital Course Hospital Course: 46-year-old male admitted with sepsis secondary to community-acquired pneumonia and influenza. Initially requiring oxygen on admission. Responded well to breathing treatments and supplemental oxygen. Started on antibiotics. Patient intolerant of Tamiflu prior to admission. Held during admission as his positive test was over a week ago. Needs close follow-up with PCP. Problems addressed during hospitalization as follows: //Sepsis secondary to CAP //Influenza A //Acute hypoxemic respiratory failure //Asthma -Patient positive for flu, initially positive a week ago, tested positive again on admission. On presentation found to have chest x-ray showing bilateral interstitial infiltrates. White cell count elevated. Met criteria for sepsis with leukocytosis, tachycardia, tachypnea. Improved during hospitalization with initiation of Levaquin and supplemental oxygen. On room air for 24 hours prior to discharge home. Will complete 7-day course of levofloxacin and 5 days course of steroids. Continue breathing treatments with Albuterol after DC due to his history of asthma. Needs close follow-up with PCP to evaluate for resolution, consider repeat chest imaging if warranted. Stable for discharge home with oral antimicrobial therapy and on room air. Exam Data for Last 24 hours Vital signs and Labs for Last 24 Hours: Temp Pulse Resp BP Pulse Ox 98.3 F 82 14 139/81 92 L 02/27/22 12:00 02/27/22 12:00 02/27/22 12:00 02/27/22 12:00 02/27/22 12:00 Laboratory Results - last 24 hr 02/27/22 06:40: WBC 13.7 H, RBC 3.87 L, Hgb 11.8 L, Hct 36.8 L, MCV 95.1 H, MCH 30.6, MCHC 32.1, RDW 13.3, Plt Count 402, MPV 7.2 L, Neut % (Auto) 83.2 H, Lymph % (Auto) 11.4, [place] % (Auto) 4.7, Eos % (Auto) 0.2, Baso % (Auto) 0.5, Neut # (Auto) 11.4 H, Lymph # (Auto) 1.6, [place] # (Auto) 0.6, Eos # (Auto) 0.0, Baso # (Auto) 0.1 02/27/22 06:40: Sodium 137, Potassium 4.1, Chloride 107, Carbon Dioxide 27, Anion Gap 7.1, BUN 12, Creatinine 0.60 L, Estimated Creat Clear 176, Estimated GFR 146, Est GFR ( Amer) 177, Glucose 111 H, Calcium 8.3 L, Total Bilirubin 0.4, AST 101 H D, ALT 159 H D, Alkaline Phosphatase 122, Total Protein 5.8 L, Albumin 2.8 L, Globulin 3.0, Albumin/Globulin Ratio 0.9 L I & O for Last 24 hours: Intake & Output 02/24/22 02/25/22 02/26/22 02/27/22 23:59 23:59 23:59 23:59 Intake Total 993 / 993 3833 / 4073 600 / 600 Output Total 100 / 860 1000 / 1000 1000 / 1000 Balance 893 / 133 2833 / 3073 -400 / -400 Weight 78.16 kg 78.982 kg 79.1 kg Constitutional Constitutional: no acute distress *Routine HEENT Exam Head: Present normocephalic Eye: Present EOMI and PERRL ENT: Present mucous membranes moist *Routine Neck Exam Neck: Present supple; Absent lymphadenopathy *Routine Respiratory Exam Respiratory: Present CTA bilaterally and wheezes; Absent accessory muscle use, rhonchi or crackles *Routine Cardiovascular Exam Cardiovascular: Present RRR *Routine Abdominal Exam Abdominal: Present soft and normoactive bowel sounds; Absent tenderness *Routine Rectal Exam Patient deferred: visual exam *Routine Exam Patient deferred: penile exam *Routine E
--- NOTE | 2022-03-04 14:53 | CARE MANAGER ---
Attempted to contact patient related to hospital discharge x2. Left voicemail message. NENITA Bar
== END 2022-02-27 14:49 | disposition home or self-care (01) | DRG 193 ==
PROVIDERS: Admitting Provider Emergency Medicine; PCP Internal Medicine; Visit Provider Emergency Medicine
DX: J10.1 Influenza due to other identified influenza virus with other respiratory manifestations (principal); A41.9 Sepsis, unspecified organism; J96.01 Acute respiratory failure with hypoxia; J18.9 Pneumonia, unspecified organism; I10 Essential (primary) hypertension
CPT/HCPCS: 36415; 80053; 80305; 81001; 83605; 83735; 85007; 85025; 87040; 93005; 94640; C9803; J0456; J1956; U0003; U0005

== ENCOUNTER 2023-11-02 16:27 | Outpatient (CLI) | payer BC, SELFPAY ==
--- NOTE | 2023-11-02 16:30 | XR_ITS ---
PROCEDURE INFORMATION: Exam: XR Chest Exam date and time: 11/02/2023 4:34 PM Age: 48 years old Clinical indication: Cough and fever and wheezing; Additional info: Fever, cough, wheezing TECHNIQUE: Imaging protocol: Radiologic exam of the chest. Views: 2 views. COMPARISON: CR XR CHEST 2V 02/25/2022 10:32 AM FINDINGS: Lungs: Unremarkable. No consolidation. Pleural spaces: Unremarkable. No pleural effusion. No pneumothorax. Heart/Mediastinum: Unremarkable. No cardiomegaly. Bones/joints: Unremarkable. IMPRESSION: Stable chest x-ray with no acute disease.
== END 2023-11-02 23:59 | disposition home or self-care (01) ==
LOC: LAB.DROPOF 16:28
PROVIDERS: PCP Internal Medicine; Visit Provider Internal Medicine
DX: J20.9 Acute bronchitis, unspecified (principal); J45.901 Unspecified asthma with (acute) exacerbation; J98.8 Other specified respiratory disorders; B97.89 Other viral agents as the cause of diseases classified elsewhere
CPT/HCPCS: 71046; 87635